=== PATIENT | female | born 1990 | race Caucasian/White ===

== ENCOUNTER 2017-06-15 20:39 | Emergency (ER) | payer SELFPAY ==
[~2017-06-15] VITALS: Ht 162.6 cm; Wt 61.0 kg
[2017-06-15 20:53] VITALS: BP 116/85
== END 2017-06-15 21:30 | disposition left against medical advice (07) ==
LOC: ER 21:24
DX: R11.2 Nausea with vomiting, unspecified (principal); Z53.21 Procedure and treatment not carried out due to patient leaving prior to being seen by health care provider